=== PATIENT | female | born 1975 | race Caucasian/White ===

== ENCOUNTER 2017-09-05 09:29 | Outpatient (CLI) | payer OTHER ==
[2017-09-05 11:24] LABS: Hematocrit 38.2 % (36.0-47.0); Red Blood Cell (RBC) Count 4.35 mill/uL (4.20-5.40); White Blood Cell (WBC) Count 4.7 thou/uL (4.8-10.8)
== END 2017-09-05 09:30 | disposition home or self-care (01) ==
LOC: LABBT 09:29
PROVIDERS: ATTEND Obstetrics & Gynecology
DX: Z01.812 Encounter for preprocedural laboratory examination (principal); Z85.3 Personal history of malignant neoplasm of breast
CPT/HCPCS: 85027; 86850; 86900; 86901

== ENCOUNTER 2017-09-09 08:18 | Day surgery (SDC) | payer OTHER ==
[2017-09-05 09:57] VITALS: BMI 25.5
--- NOTE | 2017-09-06 17:23 | HP ---
DATE OF PLANNED PROCEDURE: 09/09/2017 PREOPERATIVE DIAGNOSIS: Personal history of breast cancer, desires prophylactic bilateral salpingo-o ophorectomy. PROCEDURE TO BE PERFORMED: Laparoscopic bilateral salpingo-oophorectomy. HISTORY OF PRESENT ILLNESS: Ms. Marianne Madrigal is a 41-year-old who presented to me for well wo man exam and to discuss prophylactic bilateral salpingo-oophorectomy. The patient has been seen at [facility] in [place] for 2 years for history of breast cancer that progesterone receptor and estroge n receptor positive. The patient has had a mastectomy. She stopped taking tamoxifen after she was h aving bleeding and is now exemestane. The patient reports that she is taking "shot to make her menop ausal" for the last 3 months but the injections are very expensive and she desires to have a definiti ve management with a bilateral salpingo-oophorectomy. The patient reports that she has discussed thi s plan with her Oncology team as well, who was in agreement to proceed with the aforementioned proced ure. CURRENT MEDICATIONS: Exemestane 25 mg once daily. PAST MEDICAL HISTORY: Personal history of breast cancer. PAST SURGICAL HISTORY: Tubal ligation, 2 previous sections. GYNECOLOGIC HISTORY: No abnormal Pap smears, STDs or PID. SOCIAL HISTORY: Does not use alcohol, tobacco or drugs. She is currently and unemployed. ALLERGIES: No known allergies. FAMILY HISTORY: Significant for hypertension, heart disease, hypercholesterolemia, diabetes, and str benjamin on her father. Breast cancer in herself and her paternal aunt. The patient was reportedly BRCA negative. REVIEW OF SYSTEMS: Negative except as stated above. PHYSICAL EXAMINATION: VITAL SIGNS: Blood pressure 100/78, pulse 79, weight 152 pounds. GENERAL: No acute distress, alert and oriented, well nourished, well developed. HEENT: Grossly normal. CARDIOVASCULAR: Regular rate and rhythm. LUNGS: Clear to auscultation bilaterally. ABDOMEN: Soft, nontender, no palpable masses, no hepatosplenomegaly. GENITOURINARY: Normal external female genitalia, normal pelvic exam with no adnexal masses noted. P eritoneum normal. MUSCULOSKELETAL: Normal range of motion. SKIN: Normal. NEUROLOGIC: Grossly normal. PSYCHIATRIC: Appropriate mood and affect. ASSESSMENT AND PLAN: Ms. Marianne Madrigal is a 41-year-old with history of bilateral tubal ligati on, who desires prophylactic bilateral salpingo-oophorectomy for personal history of receptor positiv e breast cancer. She understands the risk and benefits are to include, but not limited to bleeding, infection, damage to intra-abdominal pelvic organs, possible need for future medical and/or surgical management. We also discussed the possibility of hysterectomy at the time of BSO; however, the patie nt desires only removal of the tubes and ovaries at this time. The patient's questions have been ans wered to her satisfaction, and she desires to proceed with the procedure as listed above.
[2017-09-09] MEDS ORDERED: CEFAZOLIN/Water 2 GM/20 ML SYRINGE ONE (09:00)
[2017-09-09] MEDS ORDERED: Midazolam HCl 2 mg/2 ml Vial ONE (09:21)
[2017-09-09] MEDS ORDERED: Scopolamine 1.5 mg/72 hour Patch ONE (09:21)
[2017-09-09] MEDS ORDERED: Bupivacaine 0.25% HCL 30 ML VIAL ONE (09:41)
[2017-09-09] MEDS ORDERED: Fentanyl 100 MCG/2 ML VIAL ONE ×4 (09:59→11:49)
[2017-09-09] MEDS ORDERED: Lidocaine 1% w/Epinephrine 1:200K 30 ML VIAL ONE (10:26)
[2017-09-09] MEDS ORDERED: Glycopyrrolate 0.2 MG/ML 5 ML SYRINGE ONE (10:55)
[2017-09-09] MEDS ORDERED: Lidocaine 1% PF 5 ML VIAL ONE (10:55)
[2017-09-09] MEDS ORDERED: Propofol 200 MG/20 ML VIAL ONE (10:55)
[2017-09-09] MEDS ORDERED: PHENYLEPHRINE-NS 100 MCG/ML 10 ML SYRINGE ONE (10:55)
[2017-09-09] MEDS ORDERED: ePHEDrine/0.9% NaCl/PF SYRINGE 50 mg/10 ml ONE (10:55)
[2017-09-09] MEDS ORDERED: Ondansetron HCl/PF 4 MG/2 ML Vial ONE (10:55)
--- NOTE | 2017-09-09 12:06 | OP ---
DATE OF PROCEDURE: 09/09/2017 PREOPERATIVE DIAGNOSIS: Personal history of estrogen receptor positive breast cancer, desires prophy lactic bilateral salpingo-oophorectomy. POSTOPERATIVE DIAGNOSIS: Personal history of estrogen receptor positive breast cancer, desires proph ylactic bilateral salpingo-oophorectomy. PROCEDURE PERFORMED: Laparoscopic bilateral salpingo-oophorectomy. SURGEON: Darron Du D.O. TIRE BAGGER: Chris Bacon M.D. COMPLICATIONS: None. ANESTHESIA: GETA. INTRAOPERATIVE FINDINGS: Normal-appearing vagina and cervix. Laparoscopic findings, normal-appearin g uterus, normal-appearing right ovary and fallopian tube segments, normal-appearing left fallopian t ube segments with adjacent approximate 1.5-2 cm ovarian cyst noted to a normal-appearing left ovary. PROCEDURE DETAILS: The patient was taken back to the OR with IV fluids running. Once she was in the OR, general anesthesia was obtained and the patient was then placed in low dorsal lithotomy position . The abdomen and vagina were prepped and draped in normal fashion. Pradhan catheter was placed using sterile technique. An operative speculum was placed into the vagina. The anterior lip of the cervi x was identified and grasped with a single-tooth tenaculum. A Hulka clamp was gently placed into the uterus for uterine manipulation. The single-tooth tenaculum was removed as well as the operative sp eculum. The surgeon's gloves were changed and attention was turned to the laparoscopic portion of th e case. In the infraumbilical fold, an approximate 11-mm incision was made with the skin. A Veress needle was placed through this incision and the abdomen was insufflated without difficulty. An 11-mm trocar was placed through this incision. The laparoscope was then placed through this port with the above findings noted. No adhesive disease was noted within the intraabdominal cavity. Under direct visualization, right and left lower quadrant 5-mm ports were placed after local anesthesia was injec darren into the skin and subcutaneous tissue. Both of these ports were placed without difficulty. Next , a blunt grasper and a LigaSure device were placed into the 5-mm operative trocars. The left ovary and fimbria were grasped, elevated away from the pelvic sidewall. The IP ligament was identified as well as the ureter on the patient's left side. The IP ligament was clamped with the LigaSure device. The IP ligament was cauterized and incised. The remaining paraovarian tissue, utero-ovarian ligame nt, and fallopian tube were all cauterized and incised with the LigaSure device. Once this was compl eted, the ovary and left fallopian tube were placed between the bladder and the uterus anteriorly. A ttention was then turned to the right side where the right fallopian tube was grasped, elevated away from the pelvic sidewall. The right IP ligament and right ureter were identified. The IP ligament w as grasped with the LigaSure device, cauterized, and incised. The right ovary and fallopian tube wer e dissected in similar fashion. Once both ovaries and fallopian tubes were removed, the surgical ped icles were irrigated and any small areas of bleeding were controlled with coagulation through the Lig aSure device. The pressure was dropped down to 6 mmHg with no bleeding noted. An Endo Catch bag was placed through the 11-mm port. Both ovaries' specimens as well as the left ovarian cyst specimen we re placed into this bag. The bag was then retracted through the infraumbilical port site, and all sp ecimens were accounted for. A trocar closure device was placed through the infraumbilical port; jesus pilar, the closure device was not used in the end, as there was too much leaking of the CO2 gas from ar ound the closure device to safely introduce the needle. All instruments were then removed from the a bdomen and the gas was released from the abdomen. The fascia at the infraumbilical port was closed w ith Vicryl suture. All 3 skin incisions were closed with Monocryl suture and dressed with Dermabond dressing. The Hulka clamp was removed from the uterus and vagina. The vagina was inspected and note d to be dry. No bleeding was noted. The patient was cleaned, dried, taken out of lithotomy position and transferred to recovery room.
[2017-09-09] MEDS ORDERED: HYDROcodone/Acetaminophen 5/325 mg Tablet ONE (13:07)
== END 2017-09-09 14:08 | disposition home or self-care (01) ==
LOC: SDC 08:18
PROVIDERS: ATTEND Obstetrics & Gynecology
PROC: 0UT74ZZ Resection of Bilateral Fallopian Tubes, Percutaneous Endoscopic Approach (ICD-10-PCS; principal; 2017-09-09)
PROC: 0UT24ZZ Resection of Bilateral Ovaries, Percutaneous Endoscopic Approach (ICD-10-PCS; principal; 2017-09-09)
DX: Z40.02 Encounter for prophylactic removal of ovary(s) (principal); Z40.03 Encounter for prophylactic removal of fallopian tube(s); N83.8 Other noninflammatory disorders of ovary, fallopian tube and broad ligament; Z79.899 Other long term (current) drug therapy; Z91.048 Other nonmedicinal substance allergy status; Z98.51 Tubal ligation status; Z98.890 Other specified postprocedural states; Z85.3 Personal history of malignant neoplasm of breast
CPT/HCPCS: 88305; 96374; J2001; J2250; J2405; J2704; J3010; S0020